=== PATIENT | female | born 1995 | race Caucasian/White ===

== ENCOUNTER 2023-12-25 19:38 | Day surgery (SDC) | payer OTHER ==
[2023-12-25 21:17] VITALS: BMI 48.0
[2023-12-25] MEDS ORDERED: hydrALAZINE 20 MG/ML VIAL SLOW IVP PRN (21:50)
[2023-12-25 22:25] LABS: Amphetamine Not Detected (NotDetected); Barbiturates Screen Not Detected (NotDetected); Benzodiazepine Screen Not Detected (NotDetected); Cocaine Metabolite Screen Not Detected (NotDetected); Methadone Not Detected (NotDetected); Methamphetamine Not Detected (NotDetected); Opiate Screen Not Detected (NotDetected); Oxycodone Screen Not Detected (NotDetected); Phencyclidine (PCP) Not Detected (NotDetected); THC/Cannabinoid Screen Not Detected (NotDetected); Tricyclic Screen Not Detected (NotDetected)
== END 2023-12-25 21:55 | disposition home or self-care (01) ==
LOC: CSHERS 19:38 → CSHLD/OP 20:58
PROVIDERS: ATTEND Obstetrics & Gynecology
DX: O99.891 Other specified diseases and conditions complicating pregnancy (principal); R51.9 Headache, unspecified; R60.0 Localized edema; O09.43 Supervision of pregnancy with grand multiparity, third trimester; O24.419 Gestational diabetes mellitus in pregnancy, unspecified control; O99.513 Diseases of the respiratory system complicating pregnancy, third trimester; J45.909 Unspecified asthma, uncomplicated; Z90.49 Acquired absence of other specified parts of digestive tract; Z98.890 Other specified postprocedural states; Z88.2 Allergy status to sulfonamides; Z79.899 Other long term (current) drug therapy; Z3A.35 35 weeks gestation of pregnancy
CPT/HCPCS: 71045; 80306; 93005; 93010; 99282

== ENCOUNTER 2023-12-31 01:18 | Inpatient (IN) | payer MEDICAID ==
[2023-12-31 02:09] VITALS: BMI 46.5
[2023-12-31] MEDS ORDERED: hydrALAZINE 20 MG/ML VIAL SLOW IVP PRN ×3 (02:21→05:02)
[2023-12-31 02:45] LABS: Bilirubin Neg (Negative); Blood, Urine Negative (Negative); Clarity Clear (Clear); Glucose, Urine (Dipstick) Normal (Negative); Ketone, Urine 5 mg/dL (Negative); Leukocyte 25 (Negative); Nitrite Negative (Negative); Protein, Urine (Dipstick) 15 mg/dl (Neg-Trace); Specific Gravity, Urine 1.015 (1.005-1.030); Urobilinogen Normal mg/dL (Less than 2); pH, Urine 6.5 (5.0-9.0)
[2023-12-31 02:46] LABS: #Basophils 0.02 10x3/uL (0.0-0.2); #Eosinophils 0.11 10x3/uL (0.0-0.5); #Monocytes 0.51 10x3/uL (0.0-1.1); %Basophils 0.2 % (0.0-2.0); %Eosinophils 1.3 % (0.0-6.0); %Lymphocytes 28.5 % (18.0-47.0); %Neutrophils 63.8 % (40.0-75.0); Hematocrit 34.3 % (34.9-44.5); Hemoglobin 11.8 g/dL (12.0-15.5); Mean Corpuscular HGB CONC 34.4 g/dL (32.0-36.0); Mean Corpuscular Hemoglobin 28.7 pg (27.0-33.0); Mean Corpuscular Volume 83.5 fL (81.6-98.3); Mean Platelet Volume 11.8 fL (7.4-10.4); Platelet Count 226 10x3/uL (150-450); RBC Distribution Width 13.2 % (11.5-14.5); Red Blood Cell (RBC) Count 4.11 10x6/uL (3.90-5.03); White Blood Cell (WBC) Count 8.5 10x3/uL (3.5-10.5)
[2023-12-31 02:55] LABS: Amphetamine Not Detected (NotDetected); Barbiturates Screen Not Detected (NotDetected); Benzodiazepine Screen Not Detected (NotDetected); Cocaine Metabolite Screen Not Detected (NotDetected); Methadone Not Detected (NotDetected); Methamphetamine Not Detected (NotDetected); Opiate Screen Not Detected (NotDetected); Oxycodone Screen Not Detected (NotDetected); Phencyclidine (PCP) Not Detected (NotDetected); THC/Cannabinoid Screen Not Detected (NotDetected); Tricyclic Screen Not Detected (NotDetected)
[2023-12-31 03:03] LABS: Bacteria/HPF 1+ HPF (None Seen); RBC/HPF 0-3 HPF (0-3)
[2023-12-31 03:05] LABS: Mucous/LPF 1+ LPF (<2+)
[2023-12-31] MEDS ORDERED: Promethazine HCl 25 MG/ML VIAL IM PRN ×3 (03:09→04:44)
[2023-12-31] MEDS ORDERED: Ondansetron PF 4 MG/2 ML Vial IVP PRN ×5 (03:09→05:02)
[2023-12-31] MEDS ORDERED: fentaNYL 50 mcg/mL 1 mL Vial SLOW IVP PRN ×2 (03:09→04:44)
[2023-12-31] MEDS ORDERED: Methylergonovine 0.2 MG/ML VIAL IM PRN (03:37)
[2023-12-31] MEDS ORDERED: Misoprostol 200 MCG TAB PR PRN (03:37)
[2023-12-31] MEDS ORDERED: Tranexamic Acid 1,000 MG/10 ML VIAL IVP PRN (03:37)
[2023-12-31] MEDS ORDERED: Bicitra 30 ML UDCUP PO PRN (03:40)
[2023-12-31] MEDS ORDERED: Famotidine/PF 20 mg/2ml Vial SLOW IVP PRN (03:40)
[2023-12-31] MEDS ORDERED: Oxytocin 30 units/NS 500 ML 500 ML IV SCH (03:45)
[2023-12-31] MEDS ORDERED: CEFAZOLIN 2 GM in Sodium Chloride 0.9% 100 ML IVPB SCH (03:45)
[2023-12-31] MEDS ORDERED: Azithromycin 500 MG in Sodium Chloride 0.9% 250 ML 250 ML IVPB SCH (03:45)
[2023-12-31 04:02] LABS: Creatinine, Urine 134.49 mg/dL (47-110)
[2023-12-31 04:02] LABS: ALT (SGPT) 13 U/L (8-55); AST (SGOT) 16 U/L (5-34); Albumin 2.8 g/dL (3.5-5.0); Alkaline Phosphatase 111 U/L (40-110); Anion Gap 16 mmol/L (10-20); BUN (Urea Nitrogen) 6 mg/dL (7.0-18.7); Bilirubin, Total 0.3 mg/dL (0.2-1.2); Calc. Creatinine Clearance 273 mL/min (70-130); Calcium 8.6 mg/dL (7.8-10.44); Carbon Dioxide 15 mmol/L (22-29); Chloride 109 mmol/L (98-107); Estimated GFR 125; Globulin 3.2 g/dL (2.4-3.5); Glucose 107 mg/dL (70-105); Potassium 4.2 mmol/L (3.5-5.1); Sodium 136 mmol/L (136-145)
[2023-12-31] MEDS: Carboprost 250 MCG/ML AMP IM PRN (04:03)
[2023-12-31 04:17] LABS: Analyzer IN Cardio CS NICU; RapidComm Collect By RN
[2023-12-31 04:18] LABS: Analyzer IN Cardio CS NICU; RapidComm Collect By RN; pH (Cord, venous) 7.236 (7.250-7.350)
[2023-12-31 04:22] LABS: Syphilis Antibody Nonreactive (Nonreactive); Syphilis Antibody Index 0.11 S/CO (<1.00 Non-Reactive)
[2023-12-31 04:24] LABS: HBsAg Index 0.21 S/CO (0-0.99); HIV (1/2) Antibody/Antigen Non-Reactive (NonReactive); HIV 1/2 INDEX 0.12 S/CO (<1.00); Hep B Surf Ag - L&D Non-Reactive S/CO (NonReactive)
[2023-12-31] MEDS ORDERED: diphenhydrAMINE 25 MG CAP PO PRN (04:44)
[2023-12-31] MEDS ORDERED: diphenhydrAMINE 50 MG/ML VIAL IVP PRN (04:44)
[2023-12-31] MEDS ORDERED: Naloxone HCl 0.4 mg/ml Vial IV PRN (04:44)
[2023-12-31] MEDS ORDERED: diphenhydrAMINE 50 MG/ML VIAL IM PRN (04:44)
[2023-12-31] MEDS ORDERED: Meperidine HCl/PF 25 MG (1 mL) VIAL SLOW IVP PRN (04:44)
[2023-12-31] MEDS ORDERED: HYDROmorphone/PF 10 MG in Sodium Chloride 0.9% 99 ML IV PRN (04:45)
[2023-12-31] MEDS ORDERED: Communication Order-Pharmacy FS SCH (04:45)
[2023-12-31] MEDS ORDERED: HYDROmorphone 0.5 MG/0.5 ML SYRINGE SLOW IVP PRN (04:45)
[2023-12-31 05:02] LABS: D-Dimer Test 3.58 mcg/mL (0.19-0.50); PTT 28.1 sec (22.0-33.0); Prothrombin Time 10.8 sec (9.5-12.1)
[2023-12-31] MEDS ORDERED: Lanolin Ointment 7 GM TUBE TOP PRN (05:02)
[2023-12-31] MEDS ORDERED: Zolpidem Tartrate 5 MG TAB PO PRN ×2 (05:02→12:17)
[2023-12-31] MEDS ORDERED: Boostrix 0.5 ML (Tdap) VIAL (>/=7 yrs of age) IM ONE (05:02)
[2023-12-31] MEDS ORDERED: Acetaminophen 325 MG TAB PO PRN (05:02)
[2023-12-31] MEDS ORDERED: HYDROcodone/Acetaminophen 5/325 mg Tablet PO PRN ×2 (05:02→12:17)
[2023-12-31] MEDS ORDERED: Bisacodyl 10 MG SUPP PR PRN (05:02)
[2023-12-31] MEDS: Oxytocin 30 units/NS 500 ML 500 ML IV SCH (05:25)
[2023-12-31] MEDS: HYDROmorphone/PF 10 MG in Sodium Chloride 0.9% 49 ML IVPB PRN (05:26)
[2023-12-31] MEDS: Diphenoxylate HCl/Atropine Tablet PO PRN ×2 (05:43→05:50)
[2023-12-31] MEDS: fentaNYL 50 mcg/mL 1 mL Vial ONE ×5 (06:05→09:04)
[2023-12-31] MEDS: Azithromycin 500 MG VIAL ONE (06:06)
[2023-12-31] MEDS: Tranexamic Acid 1,000 MG/10 ML VIAL ONE (06:06)
[2023-12-31] MEDS: Midazolam HCl 2 mg/2 ml Vial ONE (06:10)
[2023-12-31] MEDS: PROPOFOL 20 ML ONE (06:10)
[2023-12-31] MEDS: Lidocaine 1% PF 5 ML VIAL ONE (06:10)
[2023-12-31] MEDS: Rocuronium Bromide 10 MG/ML (10ML VIAL) ONE (06:10)
[2023-12-31] MEDS: Dexamethasone 10 MG/ML VIAL ONE (06:11)
[2023-12-31] MEDS: Ondansetron PF 4 MG/2 ML Vial ONE (06:11)
[2023-12-31] MEDS: SUCCINYLCHOLINE/SOD CL,ISO/PF 200 MG/10 ML SYRINGE FS ONE (06:11)
[2023-12-31] MEDS: Oxytocin 10 UNITS/ML VIAL ONE (06:11)
[2023-12-31] MEDS: SUGAMMADEX SODIUM 200 MG/2 ML VIAL ONE (06:11)
[2023-12-31] MEDS: CEFAZOLIN 1 GM VIAL ONE (06:11)
[2023-12-31 08:12] LABS: Hematocrit 28.9 % (34.9-44.5); Hemoglobin 9.5 g/dL (12.0-15.5); Platelet Count 218 10x3/uL (150-450)
[2023-12-31] MEDS: Terbutaline Sulfate 1 MG/ML VIAL ONE (08:59)
[2023-12-31] MEDS: Misoprostol 200 MCG TAB ONE (08:59)
[2023-12-31] MEDS: Penicillin G Potassium 5 MILL.UNITS VIAL ONE (08:59)
[2023-12-31] MEDS: Lactated Ringer's 1,000 ML IV SCH (08:59)
[2023-12-31] MEDS: Carboprost 250 MCG/ML AMP ONE ×2 (09:03→09:04)
[2023-12-31] MEDS: Methylergonovine 0.2 MG/ML VIAL ONE (09:03)
[2023-12-31] MEDS: CEFAZOLIN 2 GM VIAL ONE (09:04)
[2023-12-31] MEDS: Docusate 100 MG CAP PO SCH (09:17)
[2023-12-31] MEDS: Prenatal Vitamin 1 TAB PO SCH (09:18)
[2023-12-31] MEDS: Ferrous Sulfate 325 MG TAB PO SCH (09:18)
[2023-12-31 18:17] LABS: Hematocrit 26.2 % (34.9-44.5)
[2023-12-31] MEDS: Ketorolac Tromethamine 30 MG (1 mL) VIAL IVP PRN (20:08)
[2024-01-01 04:59] LABS: Hematocrit 24.9 % (34.9-44.5); Hemoglobin 8.1 g/dL (12.0-15.5); Mean Corpuscular HGB CONC 32.5 g/dL (32.0-36.0); Mean Corpuscular Hemoglobin 27.9 pg (27.0-33.0); Mean Corpuscular Volume 85.9 fL (81.6-98.3); Platelet Count 187 10x3/uL (150-450); RBC Distribution Width 13.3 % (11.5-14.5); White Blood Cell (WBC) Count 11.4 10x3/uL (3.5-10.5)
[2024-01-01] MEDS: Ferrous Sulfate 325 MG TAB PO SCH (09:57)
[2024-01-01] MEDS: Simethicone Chewable 80 MG TAB PO PRN (09:57)
[2024-01-01] MEDS: HYDROcodone/Acetaminophen 5/325 mg Tablet PO PRN (09:57)
[2024-01-01] MEDS: Enoxaparin 40 MG (0.4 mL) SYRINGE SC SCH ×2 (09:58→21:07)
[2024-01-01] MEDS: Ibuprofen 800 MG TAB PO SCH (13:57)
[2024-01-02 07:33] VITALS: BP 122/80; TEMP 97.7
== END 2024-01-02 11:20 | disposition home or self-care (01) | DRG 786 ==
LOC: CSHLD/OP 01:18 → CSHLD 03:36 → CSHPP 07:57
PROVIDERS: ADMIT Obstetrics & Gynecology; ATTEND Obstetrics & Gynecology
PROC: 10D00Z1 Extraction of Products of Conception, Low, Open Approach (ICD-10-PCS; principal; 2023-12-31)
DX: O32.1XX0 Maternal care for breech presentation, not applicable or unspecified (principal); O45.93 Premature separation of placenta, unspecified, third trimester; D62 Acute posthemorrhagic anemia; O72.1 Other immediate postpartum hemorrhage; O99.214 Obesity complicating childbirth; E66.813 Obesity, class 3; Z3A.35 35 weeks gestation of pregnancy; Z37.0 Single live birth; Z90.49 Acquired absence of other specified parts of digestive tract; Z88.2 Allergy status to sulfonamides
CPT/HCPCS: 36415; 51702; 80053; 80306; 81003; 81015; 82570; 82805; 84156; 85025; 85027; 85049; 85300; 85362; 85384; 85610; 85730; 86762; 86780; 86850; 86900; 86901; 87340; 87389; 88307; 99285; J0456; J1100; J1650; J1885; J2210; J2250; J2405; J2540; J2590; J2704; J3010; J3105; J3490